=== PATIENT | female | born 1975 | race Caucasian/White ===

== ENCOUNTER 2022-10-21 12:23 | Day surgery (SDC) | payer BC, SELFPAY ==
--- NOTE | 2022-10-10 15:13 | PCM.HP.BLA ---
History and Physical Date of Admission: 10/21/22 HPI: The patient is a 47 year old female presenting for pre-operative visit. She is scheduled for hysteroscopy D&C, possible fibroid or polyp resection, exam under anesthesia and endometrial ablation, for menorrhagia, endocervical polyp and possible submucosal fibroid on 10/21/22. Procedure discussed along with risks, benefits and complications. Other alternatives discussed for management. Consent form signed? Yes. ? ? PAST MEDICAL HISTORY PAST MEDICAL HISTORY Diagnosis Date ? Anxiety state ? ? OCD (obsessive compulsive disorder) ? ? ? PAST SURGICAL HISTORY PAST SURGICAL HISTORY Procedure Laterality Date ? DELIVERY ONLY ? 02/2004 ? LIGATE FALLOPIAN TUBE ? 02/2004 ? during csection ? ? ? CURRENT MEDICATIONS Current Outpatient Medications Medication Sig Dispense Refill ? FLUoxetine (PROZAC) 10 mg capsule Take 10 mg by mouth twice daily. ? ? ? Ferrous Gluconate 225 mg (27 mg iron) tab iron gluconate Quantity: 0 Refills: 0 Ordered: 06-Aug-2021 Marbella Chapman Generic Substitution Allowed ? ? ? No current facility-administered medications for this visit. ? ? ALLERGIES: Gentamicin ? PERSONAL HISTORY: SOCIAL HISTORY Social History ? Tobacco Use ? Smoking status: Former ? Smokeless tobacco: Never Vaping Use ? Vaping Use: Never used Substance Use Topics ? Alcohol use: Yes ? ? Comment: rarely ? Drug use: Never ? FAMILY HISTORY: FAMILY HISTORY FAMILY HISTORY Problem Relation Age of Onset ? Hypertension Mother ? ? Lipids Mother ? ? Melanoma Mother ? ? Kidney Disease Father ? ? COPD Father ? ? Asthma Father ? ? Emphysema Father ? ? Hypertension Father ? ? Heart Maternal Grandmother ? ? CAD ? Diabetes Maternal Grandmother ? ? Diabetes Maternal Grandfather ? ? ? REVIEW OF SYMPTOMS: GENERAL: denies fevers or chills ENDOCRINOLOGY: has not been on steroids Cardiology : denies palpitations or chest pain Respiratory: denies SOB or cough Hematology: denies history of prolonged bleeding or easy bruising or VTE Allergy: Denies history of personal or family history of allergy to anesthesia ? PHYSICAL EXAMINATION: ? VITALS: Blood pressure 124/86, pulse 75, resp. rate 16, height 5' 4 (1.626 m), weight 244 lb (110.7 kg), last menstrual period 09/22/2022, SpO2 99 %. ? GENERAL: The patient is well nourished, well hydrated in no acute distress. , The patient is oriented to time, place, and person. NECK: Supple. No lynphadenopathy, normal thyroid, no thyromegaly. LUNGS: Clear to auscultation bilaterally. no wheezes, rhonchi or rales HEART: Regular rate and rhythm, Normal heart sounds, and No murmurs or gallops ? Pelvic ultrasound from 09/02/2022: Uterus: -Size: 4.7 x 6.3 x 13.3 cm -Orientation: Anteverted -Endometrial echo complex:The endometrial echo complex measured 1.3 cm. -Cervix: Cervical nabothian cysts present measuring up to 1.5 cm. -Fibroids: Myomatous. A exhibit display representative uterine body fibroid and measures 1.4 cm in size and appears intramural with a probable submucosal component. Right Ovary: Not visualized. No sonographic evidence of right adnexal mass. Left Ovary: 4.6 x 4.9 x 5.5 cm ?- Contains a 4.9 cm mildly hemorrhagic cyst. ? ? Endometrial biopsy from 2022 cm shows endocervical polyp, definitive endometrial tissue not present. ? IMPRESSION: Menorrhagia, stenotic cervix, submucosal fibroid, endocervical polyp ? PLAN: The risks/benefits/alternatives and personal involved for the planned hysteroscopy D&C with possible fibroid or polyp resection, exam under anesthesia, endometrial ablation were reviewed with the patient. Her questions were answered to her satisfaction and she desires to proceed. Consent was signed. I reviewed with her postop instructions and expectations. ? ? I have reviewed and updated past medical and surgical history, medications and allergies
--- NOTE | 2022-10-21 | EMB_PTH ---
PATIENT: ANGIE KWON [place] [facility] [place][id number] AGE/SX: 47/F ROOM: RE10/21/[address]: Dr. Jerri Vallejo MD : 1975 BED: DIS: 10/21/2022 SPEC #: [id number] RECD: 10/21/22 16:26 STATUS: MATHIEU MERRY #: [id number] ION: 10/21/22 00:[address]: Jerri Vallejo DEPT: SURGICAL PATHOLOGY RECD BY: Wilman Mills Tissues: Endometrium, NOS Procedures: Surgery Specimen Level IV HEADER OPERATION: Hysteroscopy, D & C Lyndsay PRE-OP DIAGNOSIS: Menorrhagia, stenotic cervix, submucosal fibroid, endocervical polyp TISSUE SUBMITTED: Endometrial curettings MICROSCOPIC DIAGNOSIS Endometrial curettings: Early secretory endometrium with focal glandular breakdown. HAYDER:alexis 10/25/2022 MICROSCOPIC DESCRIPTION Slides are reviewed. GROSS DESCRIPTION Received in fixative is one container labeled with the patient's name and designated endometrial curettings. The specimen consists of multiple fragments of hemorrhagic soft tissue that in aggregate measure 3.0 x 2.5 x 0.2 cm. The specimen is totally submitted in two cassettes. / SJ:alexis 10/24/2022 TC:5 CPT: 52014
[2022-10-21] MEDS: Lactated Ringers 1,000 ML 15 ML IV (12:30)
[2022-10-21 12:56] LABS: Internal QC Validated? YES +Cl - CLEAR BKGD; Pregnancy, Urine Negative Negative
[2022-10-21 13:15] LABS: Hematocrit 39.8 % (37-47); Hemoglobin 10.9 g/dL (12.0-15.0); Mean Corp Hgb Conc 27.4 g/dL (32-36); Mean Corpuscular Hgb 18.3 pg (27.0-32.0); Mean Corpuscular Volume 66.7 fL (81-99); Mean Platelet Vol. 9.3 fl (6.2-12.0); POSITIVE MORPHOLOGY YES; Platelet Count 290 K/mm3 (150-450); RBC Distribution Width CV 22.8 % (11.6-14.6); RBC Distribution Width SD 51.8 fl (35.1-43.9); Red Blood Count 5.97 M/mm3 (4.2-5.4); White Blood Count 8.6 K/mm3 (4.4-11.0)
[2022-10-21] MEDS: Ketorolac 30 MG/ML Syringe IV (13:15)
[2022-10-21 13:17] VITALS: BP 144/77; PULSE 84; RESP 18; TEMP 35.8; O2SAT 100; BMI 41.3
[2022-10-21 13:32] LABS: Scan Indicated on CBC? Y/N YES- FLAGS NOTED
[2022-10-21] MEDS: Lidocaine 1% /Epi 1:100 (20ml) 20 ML Vial (13:45)
--- NOTE | 2022-10-21 14:01 | OP.PCM_ITS ---
Problems Associated Problem List Diagnoses (1) Menorrhagia: Report of Operation Date of Procedure: 10/21/22 Pre-Operative Diagnosis: menorrhagia Post-Operative Diagnosis: same Surgery/Procedure Performed:: Hysteroscopy D&C with Lyndsay endometrial ablation Description of Surgical Findings:: normal cervix and vagina, lush endometrium Surgeon: Jerri Vallejo websphere consultant: Jarvis Johnson MS3 Type of Anesthesia: MAC/Supplemental/Local Anesthesiologist: Zoraida Coles Special Medications: none Specimen's removed: endometrial curettings Drains: none Estimated Blood Loss (mL): 10 Fluids Replaced: 600 Description of Procedure: The patient was taken to the OR where she was prepped and draped in dorsal lithotomy position. The weighted speculum was placed in the vagina and the anterior lip of the cervix was grasped with a single-tooth tenaculum. A paracervical block was administered with [1% lidocaine with 1-100,000 epinephrin e solution]. The cervix was dilated serially with Hegar dilators. The [5mm] hysteroscope was placed into the uterine cavity and the above findings were noted. Bilateral tubal ostia [were] identified. The hysteroscope was removed. A gentle sharp curettage was done of the uterine cavity. The instruments were removed from the vagina. The uterine cavity size was 10 cm, the cervix was 4 cm. The Lyndsay device was set to 6 cm. The Lyndsay device was placed into the endometrial cavity and opened in the cervical balloon seal inflated. The first uterine cavity integrity test was passed and the second uterine integrity test was initiated. This was passed on the first attempt. The device then activated and went through the endometrial ablation cycle without interruption. When the procedure ended the device was removed. The instruments were removed from the vagina. The specimen was handed off and sent to pathology. All sponge and needle counts were correct. Vaginal sweep was performed by me. The patient was awakened and taken to the recovery room in stable condition. Hysteroscopic ins: 200 cc normal saline Hysteroscopic outs: 150 cc No polyps or fibroids were noted in the endometrial cavity. The cavity was normal shape Grafts/Implants Used: none Procedure Start Time: 13:39 Procedure Stop Time: 13:55 Complications none Admit VTE Documentation VTE Present on Admission: No VTE Mechan Device Prophylaxis: SCD's VTE Pharm Prophylaxis ordered?: No Reason prophylaxis not ordered:: Procedure Not Indicated
[2022-10-21 14:05] VITALS: BP 128/61; BP 144/77; PULSE 85; RESP 16; TEMP 36.7; O2SAT 97
--- NOTE | 2022-10-21 14:09 | PCM.DC ---
Discharge Instructions Diet Discharge Diet: No restrictions Activity May resume sexual activity in: 2 weeks Lifting Restrictions: none Dressing / Incision Call your doctor if your incision/area has: Sudden Increased Bleeding and Foul Smelling Discharge Call your doctor if you observe: Fever of 101 or Higher and Using more than 1 pad per hour (for 2 hrs in a row) Follow Up Care Please Follow Up With: Jerri Vallejo MD When: Our office will contact you with your pathology results next week. Send a Sensiot[employer] message or call the office at [phone] with any concerns Test Results: Test results from this visit will be discussed in further detail at your follow-up appointment, if applicable. Discharge Plan Admission Primary Reason for Your Visit: Hysteroscopy D&C with endometrial ablation Attending Provider: Jerri Vallejo Primary Care Provider: LIZET OLMEDO Discharge Orders/Prescriptions Prescriptions: New ibuprofen [ibuprofen] 600 mg tablet 600 mg PO Q6H PRN (Reason: Pain) 20 Days Qty: 30 1RF hydrocodone-acetaminophen 5-300 mg tablet 1 tab PO BID PRN (Reason: pain) 3 Days Qty: 5 0RF Continued fluoxetine 10 mg capsule 20 mg PO DAILY Patient Comments: TAKE 1 CAPSULE BY MOUTH TWICE DAILY ferrous sulfate [iron] 325 mg (65 mg iron) tablet 325 mg PO DAILY Disposition Disposition (needs filled in before D/C Order can be placed): Home, Self Care
[2022-10-21 14:10] VITALS: BP 142/79; BP 144/77; PULSE 78; RESP 16; O2SAT 100
[2022-10-21 14:15] VITALS: BP 124/68; BP 144/77; PULSE 77; RESP 16; O2SAT 100
[2022-10-21 14:20] VITALS: BP 128/84; BP 144/77; PULSE 74; RESP 16; TEMP 36.4; O2SAT 100
[2022-10-21 14:50] VITALS: BP 144/77
== END 2022-10-21 15:03 | disposition home or self-care (01) ==
LOC: SDC 12:25 → AC 12:27
PROVIDERS: Anesthesiology; Referring Provider Obstetrics & Gynecology; Visit Provider Obstetrics & Gynecology
PROC: 0U5B8ZZ Destruction of Endometrium, Via Natural or Artificial Opening Endoscopic (ICD-10-PCS; CPT 58558; principal; 2022-10-21 14:45)
DX: N92.0 Excessive and frequent menstruation with regular cycle (principal); F41.1 Generalized anxiety disorder; F42.9 Obsessive-compulsive disorder, unspecified; E61.1 Iron deficiency; Z87.891 Personal history of nicotine dependence
CPT/HCPCS: 58563; 00952; 81025; 85027; 88305; J7120; J2405

== ENCOUNTER 2023-07-07 06:21 | Day surgery (SDC) | payer BC, SELFPAY ==
[2023-07-07 06:55] VITALS: BP 144/97; PULSE 87; RESP 17; TEMP 36.6; O2SAT 98; BMI 41.8
[2023-07-07 06:55] LABS: Internal QC Validated? YES +Cl - CLEAR BKGD; Pregnancy, Urine Negative Negative
[2023-07-07] MEDS: Lactated Ringers 1,000 ML 15 ML IV (06:55)
--- NOTE | 2023-07-07 07:10 | HP.PCM_ITS ---
HPI - General General Date of Service: 07/07/23 HPI Narrative ANGIE KWON, is a 48 F who presents for colonoscopy for + cologuard. no changes since office visit. office visit 05/18/23 HPI HPI: 48-year-old female presents for diagnostic colonoscopy due to positive Cologuard. Patient never had previous colonoscopy. Patient denies any family history of colon cancer. Patient has bowel movements typically daily if she eats her raisin bran cereal. Patient denies any chronic abdominal pain/nausea/vomiting/reflux. [facility] Medical History Cardiology follow-up encounter History of echocardiogram Wears glasses Anxiety Low iron Restless legs Migraine headache Shortness of breath on exertion Leg cramps Former smoker History of irregular heartbeat Home Medications ?Medication ?Instructions ?Recorded ?Last Taken ?Type fluoxetine 10 mg capsule 20 mg PO DAILY 10/04/22 07/06/23 History ibuprofen 600 mg tablet 600 mg PO Q6H PRN Pain 20 days #30 10/21/22 Unknown Rx TABLETS Allergy/AdvReac Type Severity Reaction Status Date / Time gentamicin Allergy Severe Swelling Verified 07/07/23 06:32 Surgical History History of hysteroscopy History of Social History (Updated 05/18/23 @ 14:05 by Denae Damon) Smoking Status: Former smoker alcohol intake: never substance use type: does not use Past Medical/Surgical History Planned Operation Planned Operative Procedure/s: COLONOSCOPY Previous Hospitalizations/Surgeries HX Hospitalizations: No Any Problems With Anesthesia: No You/Your Family Experience Fever (Hyperthermia) With Anes: No Cholinesterase deficiency: No Cardiovascular Hx Hypertension: No Respiratory Hx Sleep Apnea: No Hx Respiratory Tract Infection/Cold (presently): No Do You Snore Loudly (louder than talking or can be heard): No Do You Often Feel Tired/ Fatigued/ Sleepy Dring Daytime?: No Has Anyone Observed You Stop Breathing During Sleep?: No Result (for STOP score): Negative Smoking Status: Former smoker Neurological Does patient have nerve stimulator: No Reproduction : No Miscellaneous Recent Exposure to Contagious Disease: No Allergies gentamicin Allergy (Severe, Verified 07/07/23 06:32) Swelling EYE SWELLING Discharge Is Pt Admitted From a Penitentiary, or a Alf: No After D/C, Where Do you Plan to Go: Return Home Vital Signs Vital Signs Vital Signs: 07/07/23 06:55 07/07/23 06:55 Temperature 97.8 F Temperature Source Temporal Pulse Rate 87 Respiratory Rate 17 Respiratory Pattern Normal Blood Pressure 144/97 H Blood Pressure Mean 112 Blood Pressure Source Monitor Blood Pressure Position Semi-Fowlers Blood Pressure Location Left Forearm Pulse Ox 98 Oxygen Delivery Method Room Air Weight Weight: 244 lb 0.827 oz Body Mass Index (BMI) 41.8 Physical Exam Const alert, oriented x3 and no apparent distress HEENT normocephalic and head/scalp atraumatic Resp normal respiratory effort Cardio regular rate GI soft to palpation and non-tender; Negative for non-distended Palpation: Negative for guarding Extremity no clubbing, cyanosis or edema Skin no rashes or lesions noted Neuro CN's II-XII intact bilaterally Psych mental status grossly normal Assessment & Plan Assessment/Plan (1) Positive colorectal cancer screening using Cologuard test: Surgery Risks - Colonoscopy I discussed with the patient the risks of the procedure: Yes Risks Include but are not Limited To: Risks include but are not limited to: Bleeding, perforation requiring further surgery, inability to complete colonoscopy requiring barium enema.
--- NOTE | 2023-07-07 07:30 | COLBX_PTH ---
PATIENT: ANGIE KWON LOC: [facility] U#:[id number] AGE/SX: 48/F ROOM: RE07/07/[address]: Dr. Kita Sorenson MD : 1975 BED: DIS: 07/07/2023 SPEC #: [id number] RECD: 07/07/23 10:43 STATUS: MATHIEU GREGYuri #: [id number] ION: 07/07/23 07:[address]: Kita Sorenson DEPT: SURGICAL PATHOLOGY RECD BY: Lucero Desai ENTERED: 07/07/23 12:09 SP TYPE: COLON BX OTHR DR: Dr. Sudhakar Espinoza MD Tissues: Rectum, NOS Procedures: Surgery Specimen Level IV HEADER OPERATION: Colonoscopy with biopsies PRE-OP DIAGNOSIS: Positive colorectal cancer screening using Cologuard test TISSUE SUBMITTED: Polyp at rectum biopsy MICROSCOPIC DIAGNOSIS Rectal polyp, biopsy: Fragments of colonic mucosa with focal hyperplastic change. AM/mr 07/11/2023 MICROSCOPIC DESCRIPTION Slides are reviewed. GROSS DESCRIPTION Received in fixative is one container labeled with the patient's name and designated polyp at rectum. The specimen consists of two irregular fragments of light rush soft tissue that in aggregate measure 0.6 x 0.3 x 0.1 cm. The specimen is totally submitted in one cassette. AM/mr 07/07/23 TC:5 CPT:17907
[2023-07-07 07:55] VITALS: BP 107/48; PULSE 63; RESP 16; TEMP 36.2; O2SAT 98
--- NOTE | 2023-07-07 07:59 | OP.COLON_ITS ---
Patient Name: Comfort Noland Procedure Date: 07/07/2023 7:18 AM Date of : 1975 Age: 48 Procedure: Colonoscopy Indications: Positive Cologuard test Providers: Kita Sorenson MD Referring MD: Sudhakar Espinoza Md Medicines: Monitored Anesthesia Care Patient Profile: This is a 48 year old female. Last Colonoscopy: none. The patient's first colonoscopy is today. Complications: No immediate complications. Procedure: Pre-Anesthesia Assessment: - Prior to the procedure, a History and Physical was performed, and patient medications and allergies were reviewed. The patient's tolerance of previous anesthesia was also reviewed. The risks and benefits of the procedure and the sedation options and risks were discussed with the patient. All questions were answered, and informed consent was obtained. Prior Anticoagulants: The patient has taken no anticoagulant or antiplatelet agents. ASA Grade Assessment: Per anesthesia. After reviewing the risks and benefits, the patient was deemed in satisfactory condition to undergo the procedure. After I obtained informed consent, the scope was passed under direct vision. Throughout the procedure, the patient's blood pressure, pulse, and oxygen saturations were monitored continuously. The Colonoscope was introduced through the anus and advanced to the cecum, identified by the appendiceal orifice, ileocecal valve and palpation. The colonoscopy was performed without difficulty. The patient tolerated the procedure well. The quality of the bowel preparation was good. Scope In: 7:29:06 AM Scope Withdrawal Time 0 hours 14 minutes 32 seconds Scope Out: 7:48:28 AM Total Procedure Duration Time 0 hours 19 minutes 22 seconds Findings: The perianal and digital rectal examinations were normal. Two sessile polyps were found in the rectum. The polyps were less than 5 mm in size. These polyps were removed with a cold biopsy forceps. Resection and retrieval were complete. The exam was otherwise without abnormality on direct and retroflexion views. Impression: - Two less than 5 mm polyps in the rectum, removed with a cold biopsy forceps. Resected and retrieved. - The examination was otherwise normal on direct and retroflexion views. Recommendation: - Discharge patient to home. - Resume previous diet. - Continue present medications. - Await pathology results. - Repeat colonoscopy in 5 years for surveillance based on pathology results. Procedure Code(s): --- Professional --- 89322, PT, Colonoscopy, flexible; with biopsy, single or multiple Diagnosis Code(s): --- Professional --- D12.8, Benign neoplasm of rectum R19.5, Other fecal abnormalities CPT copyright 2021 [employer]. All rights reserved. The codes documented in this report are preliminary and upon medical records auditor review may be revised to meet current compliance requirements. MD Kita Murillo MD 07/07/2023 7:58:46 AM This report has been signed electronically. Number of Addenda: 0 Note Initiated On: 07/07/2023 7:18 AM
--- NOTE | 2023-07-07 07:59 | OP.CCLET_ITS ---
07/07/2023 Sudhakar Espinoza Md Re : Colonoscopy procedure for Comfort Noland Dear Dr. Espinoza This procedure was performed on Friday, July 07, 2023. My impressions and recommendations are as follows: Impressions : - Two less than 5 mm polyps in the rectum, removed with a cold biopsy forceps. Resected and retrieved. - The examination was otherwise normal on direct and retroflexion views. Recommendations : - Discharge patient to home. - Resume previous diet. - Continue present medications. - Await pathology results. - Repeat colonoscopy in 5 years for surveillance based on pathology results. My findings are described in the full procedure note, which is enclosed. If I can be of further assistance, please feel free to contact me at Doctor phone number(s): , Work: . Sincerely, MD Kita Murillo MD 07/07/2023 7:58:46 AM This report has been signed electronically.
[2023-07-07 08:00] VITALS: BP 115/64; PULSE 62; RESP 16; O2SAT 98
[2023-07-07 08:04] VITALS: BP 133/74; PULSE 60; RESP 16; TEMP 36.9; O2SAT 100
== END 2023-07-07 08:34 | disposition home or self-care (01) ==
LOC: EN 06:22 → AC 06:23
PROVIDERS: Anesthesiology; PCP Family Medicine; Referring Provider Family Medicine; Visit Provider Surgery
PROC: 0DJD8ZZ Inspection of Lower Intestinal Tract, Via Natural or Artificial Opening Endoscopic (ICD-10-PCS; CPT 45378; principal; 2023-07-07 07:25)
DX: R19.5 Other fecal abnormalities (principal); K62.1 Rectal polyp; Z87.891 Personal history of nicotine dependence; Z90.49 Acquired absence of other specified parts of digestive tract
CPT/HCPCS: 45380; 81025; 88305; J7120; J2405

== ENCOUNTER 2023-08-25 10:10 | Day surgery (SDC) | payer BC, SELFPAY ==
--- NOTE | 2023-08-23 09:18 | HP.PCM_ITS ---
History and Physical Date of Admission: 08/25/23 HPI: The patient is a 48 year old female presenting for pre-operative visit. She is scheduled for LAVH with bilateral salpingectomy and cystoscopy, for failed endometrial ablation, AUB and adenomyosis on 08/25/23. Procedure discussed along with risks, benefits and complications. Other alternatives discussed for management. Consent form signed? Yes. PAST SURGICAL HISTORY PAST SURGICAL HISTORY Procedure Laterality Date ? DELIVERY ONLY 02/2004 ? HYSTEROSCOPY ENDOMETRIAL ABLATION 10/21/2022 Hysteroscopy D&C with Lyndsay endometrial ablation ? LIGATE FALLOPIAN TUBE 02/2004 during csection CURRENT MEDICATIONS Current Outpatient Medications Medication Sig Dispense Refill ? Norethindrone Acet-Ethinyl Est (LOESTRIN 03/04, ,) 1-20 mg-mcg per tablet Take 1 tablet by mouth once daily. 21 tablet 3 ? FLUoxetine (PROZAC) 10 mg capsule Take 10 mg by mouth two times a day. ? Ferrous Gluconate 225 mg (27 mg iron) tab iron gluconate Quantity: 0 Refills: 0 Ordered: 06-Aug-2021 Marbella Chapman Generic Substitution Allowed (Patient not taking: Reported on 01/16/2023) No current facility-administered medications for this visit. ALLERGIES: Gentamicin PERSONAL HISTORY: SOCIAL HISTORY Social History Tobacco Use ? Smoking status: Former ? Smokeless tobacco: Never Vaping Use ? Vaping Use: Never used Substance Use Topics ? Alcohol use: Yes Comment: rarely ? Drug use: Never FAMILY HISTORY: FAMILY HISTORY FAMILY HISTORY Problem Relation Age of Onset ? Hypertension Mother ? Lipids Mother ? Melanoma Mother ? Kidney Disease Father ? COPD Father ? Asthma Father ? Emphysema Father ? Hypertension Father ? Heart Maternal Grandmother CAD ? Diabetes Maternal Grandmother ? Diabetes Maternal Grandfather REVIEW OF SYMPTOMS: GENERAL: denies fevers or chills ENDOCRINOLOGY: has not been on steroids Cardiology : denies palpitations or chest pain Respiratory: denies SOB or cough Hematology: denies history of prolonged bleeding or easy bruising or VTE Allergy: Denies history of personal or family history of allergy to anesthesia PHYSICAL EXAMINATION: VITALS: Blood pressure 138/82, pulse 80, resp. rate 16, height 162.6 cm (5' 4), weight 112.4 kg (247 lb 12.8 oz), last menstrual period 09/22/2022. GENERAL: The patient is well nourished, well hydrated in no acute distress. , The patient is oriented to time, place, and person. NECK: Supple. No lynphadenopathy, normal thyroid, no thyromegaly. LUNGS: Clear to auscultation bilaterally. no wheezes, rhonchi or rales HEART: Regular rate and rhythm, Normal heart sounds, and No murmurs or gallops D&C done in past year, benign endometrium PAP and HPV02/2022 neg w/ neg hrHpv Pelvic US 07/13/23: Indication Abnormal uterine bleeding Impression Normal appearing anteverted uterus that measures 108 mm x 54 mm x 61 mm. The central endometrium complex measures 4.9 mm in combined thickness. No abnormal blood flow to suggest a polyp or focal endometrial pathology is observed within the endometrial complex. The contour of the endometrial cavity was normal on 3-D imaging. Both ovaries are visualized and appear normal. No adnexal masses were observed. There is no free fluid visualized in the peritoneal cavity. Recommendations Follow up as clinically indicated. 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 Endometrial thickness, total 4.9 mm Right Ovary Rt ovary: Visualized Rt ovary D1 19 mm Rt ovary D2 18 mm Rt ovary D3 19 mm Rt ovary Vol 3.4 cm? Left Ovary Lt ovary: Visualized Lt ovary D1 20 mm Lt ovary D2 19 mm Lt ovary D3 22 mm Lt ovary Vol 4.3 cm? Cul de Sac Visualized. no free fluid visualized IMPRESSION: AUB, adenomyosis, failed endometrial ablation PLAN: The risks/benefits/alternatives and personal involved for the planned LAVH with bilateral salpingectomy and cystoscopy were reviewed with the patient. Her questions were answered to her satisfaction and she desires to proceed. Consent was signed. I reviewed with her postop instructions and expectations. Preop CBC and magnesium ordered I have reviewed and updated past medical and surgical history, medications and allergies Assessment & Plan Assessment/Plan (1) Adenomyosis: (2) Abnormal uterine bleeding (AUB):
[2023-08-23 10:30] LABS: Hemoglobin 13.9 g/dL (12.0-15.0); Mean Corp Hgb Conc 31.6 g/dL (32-36); Mean Corpuscular Hgb 23.7 pg (27.0-32.0); Mean Platelet Vol. 9.8 fl (6.2-12.0); Platelet Count 265 K/mm3 (150-450); RBC Distribution Width SD 40.5 fl (35.1-43.9); Red Blood Count 5.87 M/mm3 (4.2-5.4); White Blood Count 5.8 K/mm3 (4.4-11.0)
[2023-08-23 11:25] LABS: Magnesium 2.4 mg/dL (1.6-2.6)
[2023-08-23 13:47] LABS: Magnesium 2.4 mg/dL (1.6-2.6)
[2023-08-25] VITALS (10 sets, daily range): BP systolic 123–167; BP diastolic 68–95; PULSE 56–84; RESP 14–18; TEMP 36.7–37.2; O2SAT 96–99; BMI 42.0
[2023-08-25 10:33] LABS: Internal QC Validated? YES +Cl - CLEAR BKGD; Pregnancy, Urine Negative Negative
[2023-08-25] MEDS: Lactated Ringers 1,000 ML 40 ML IV (10:36)
--- NOTE | 2023-08-25 10:36 | PCM.PRE.AN2 ---
ASA Classification* ASA Classification ASA Classification: 3 Assessment & Plan Anesthesia* Anesthesia Assessment Anesthesia Assessment: Discussed sedation and/or anesthesia options, risks, benefits, and alternatives with patient/parents/legal guardian/POA. Questions invited. The patient/parents/legal guardian/POA seems to understand and agrees to proceed with anesthesia plan. Reviewed the physical assessment, medical history, allergy history and patient home medications list prior to surgery/procedure/anesthetic and documented any changes. Performed airway and anesthesia risk assessments. Anesthesia Type Anesthesia Type: General (see written pre anesthesia record for full assessment) Anesthesia Focused Assessment* Temperature: 99 F Pulse Rate: 84 Blood Pressure: 167/95 Respiratory Rate: 17 Pulse Ox: 99 Airway Assessment Mouth opens: >3 cm Mallampati Score: I Focused Labs Anesthesia Preop lab: CBC WBC 5.8 K/mm3 (4.4-11.0) 08/23/23 09:33 RBC 5.87 M/mm3 (4.2-5.4) H 08/23/23 09:33 Hgb 13.9 g/dL (12.0-15.0) 08/23/23 09:33 Hct 44.0 % (37-47) 08/23/23 09:33 Plt Count 265 K/mm3 (150-450) 08/23/23 09:33 CHEMISTRY Magnesium 2.4 mg/dL (1.6-2.6) 08/23/23 09:32 COAG Urine Test Negative Negative 08/25/23 10:15 Pre-Assessment Diagnosis/Proposed Procedure Planned Operative Procedure(s): ERAS Hysterectomy,[facility] Anesthesia History 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 When Was Last Pacemaker Check QUESTION #4 FULL TEXT: You/Your Family Experience fever (hyperthermia) with Anesthesia Last Oral Intake Last Oral intake: Last Oral Intake NPO since 19:00 08/25/23 10:27 Meds taken in AM with sips of Yes 08/25/23 10:27 water? 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 accountant bookkeeper: PONV - junior accountant bookkeeper Female Yes 08/21/23 14:56 HX of Motion Sickness No 08/21/23 14:56 HX of N/V After Surgery No 08/21/23 14:56 Non-Smoker Yes 08/21/23 14:56 Duration of Surgery greater Yes 08/21/23 14:56 than 60 minutes Number of Risk Factors 3 08/21/23 14:56 PONV Score Moderate Risk 08/21/23 14:56 Height & Weight Height & Weight: Anesthesia: Height & Weight Height 5 ft 4 in 08/25/23 10:27 Weight: 111 kg 08/25/23 10:27 Body Mass Index (BMI) 42.0 08/25/23 10:27 Respiratory Assessment Respiratory Assessment - junior accountant bookkeeper: Respiratory Tract Infection Hx - junior accountant bookkeeper Hx Respiratory Tract Infection No 08/21/23 14:56 STOP Sleep Apnea STOP Sleep Apnea - junior accountant bookkeeper: STOP Sleep Apnea - junior accountant bookkeeper Hx Hypertension No 08/21/23 14:56 Hx Sleep Apnea No 08/21/23 14:56 CPAP BIPAP Do you snore loudly (louder No 08/21/23 14:56 than talking or can be heard Do you often feel tired/ No 08/21/23 14:56 fatigued/ sleepy during daytime? Has anyone observed you stop No 08/21/23 14:56 breathing during sleep? STOP Results Negative 08/21/23 14:56 QUESTION #5 FULL TEXT : Do you snore loudly (louder than talking or can be heard through closed doors)? 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 Specify any problems Hx of Preganancy in last 3 No 08/21/23 14:56 Months Nurse Filling Out Transfusion [facility] 08/21/23 14:56 & Questions: Date: 08/21/23 08/21/23 14:56 Time: 14:59 08/21/23 14:56 Patient unable to answer at this time (ie. 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: /Reproductive Hx- junior accountant bookkeeper Hx Now No 08/21/23 14:56 Gestational Age (in weeks): EDC: Hx Hx Para Hx Section SAB No 08/21/23 14:56 Active Medications Active Medications: Current Medications Generic Name Dose Route Start Last Admin Trade Name Freq PRN Reason Stop Dose Admin Acetaminophen 1,000 mg 08/25/23 12:10 Acetaminophen 500 Mg Tablet PO 08/25/23 12:11 PREOP ONE Celecoxib 400 mg 08/25/23 12:10 Celecoxib 200 Mg Capsule PO 08/25/23 12:11 X1 ONE Dexamethasone Sodium Phosphate 8 mg 08/25/23 12:10 Dexamethasone 4 Mg/Ml Vial IV 08/25/23 12:11 X1 ONE Enoxaparin Sodium 40 mg 08/25/23 12:10 Enoxaparin 40 Mg/0.4 Ml Syringe SC 08/25/23 12:11 X1 ONE Gabapentin 600 mg 08/25/23 12:10 Gabapentin 600 Mg Tablet PO 08/25/23 12:11 PREOP ONE Lactated Ringer's 1,000 mls @ 40 mls/hr 08/25/23 12:10 IV .Q25H KADE Cefazolin Sodium 2 gm/ Sodium 110 mls @ 150 mls/hr 08/25/23 12:10 Chloride IV 08/25/23 12:53 PREOP ONE Lactated Ringer's 1,000 mls @ 70 mls/hr 08/25/23 12:10 IV .[id number] KADE Magnesium Sulfate 1 gm/ 102 mls @ 408 mls/hr 08/25/23 12:10 Dextrose IV 08/25/23 12:24 X1 ONE Insulin Human Lispro 0 unit 08/25/23 12:10 Insulin Lispro 100 Unit/Ml Insuln.Pen SC Q4H PRN PRN BG >/= 180, SEE PROTOCOL Protocol Ondansetron HCl 4 mg 08/25/23 12:10 Ondansetron 4 Mg/2 Ml Vial IV 08/25/23 12:11 X1 ONE Phenazopyridine HCl 190 mg 08/25/23 12:10 Phenazopyridine 95 Mg Tablet PO 08/25/23 12:11 X1 ONE Scopolamine HBr 1 patch 08/25/23 12:10 Scopolamine 1mg/72hr Patch TD 08/25/23 12:11 X1 ONE PFSH Medical History Cardiology follow-up encounter History of echocardiogram Wears glasses Anxiety Low iron Restless legs Migraine headache Shortness of breath on exertion Leg cramps Former smoker History of irregular heartbeat Home Medications ?Medication ?Instructions ?Recorded ?Last Taken ?Type fluoxetine 10 mg capsule 20 mg PO DAILY 10/04/22 07/06/23 History ibuprofen 600 mg tablet 600 mg PO Q6H PRN Pain 20 days #30 10/21/22 Unknown Rx TABLETS norethindrone acetate 1 mg-ethinyl 1 tab PO DAILY 08/21/23 Unknown History estradiol 20 mcg tablet (Richard) Allergy/AdvReac Type Severity Reaction Status Date / Time gentamicin Allergy Severe Swelling Verified 07/07/23 06:32 Surgical History History of endometrial ablation History of colonoscopy History of hysteroscopy History of Social History Smoking Status: Former smoker alcohol intake: never substance use type: does not use Review of Systems (Anesthesia) ROS Narrative System reviewed and no additional complaints, except as documented.
[2023-08-25] MEDS: Scopolamine 1mg/72hr Patch 1 PATCH TD (10:37)
[2023-08-25] MEDS: Enoxaparin 40 MG/0.4 ML Syringe SC (10:37)
[2023-08-25] MEDS: Phenazopyridine 95 MG Tablet 190 MG PO (10:38)
[2023-08-25] MEDS: Acetaminophen 500 MG Tablet 1000 MG PO ×2 (10:38→16:35)
[2023-08-25] MEDS: Magnesium 1 GM over 15 mins IV (10:39)
[2023-08-25] MEDS: Celecoxib 200 MG Capsule 400 MG PO (10:39)
[2023-08-25] MEDS: Gabapentin 600 MG Tablet PO (10:59)
[2023-08-25] MEDS: dexAMETHasone 4 MG/ML Vial 8 MG IV (12:10)
[2023-08-25] MEDS: Cefazolin 2 GM in 0.9% Normal Saline (100mL Bag) 100 ML IV (12:10)
--- NOTE | 2023-08-25 12:10 | HYST_PTH ---
PATIENT: ANGIE KWON LOC: [facility] [place] U#:[id number] AGE/SX: 48/F ROOM: RE08/25/[address]: Dr. Jerri Vallejo MD : [id number] BED: DIS: 08/25/2023 SPEC #: [id number] RECD: 08/25/23 18:20 STATUS: MATHIEU REYuri #: [id number] ION: 08/25/23 12:[address]: Jerri Vallejo DEPT: SURGICAL PATHOLOGY RECD BY: Oc Mendoza ENTERED: 08/28/23 08:39 SP TYPE: HYSTERECT OTHR DR: MD Dr. Graham Castro MD Tissues: Uterus, NOS Procedures: Surgery Specimen Level V HEADER OPERATION: Hysterectomy, LAVH, bilateral salpingectomy PRE-OP DIAGNOSIS: Adenomyosis, abnormal uterine bleeding TISSUE SUBMITTED: Uterus, cervix, bilateral fallopian tubes MICROSCOPIC DIAGNOSIS Uterus, cervix, bilateral fallopian tubes, hysterectomy, bilateral salpingectomy: Cervix - no pathologic diagnosis. Endometrium - Proliferative endometrium. See comment. Myometrium - Adenomyosis. Intramural and submucosal leiomyomas (Largest measuring 2.0cm in greatest dimension) One fallopian tube- Focal hematosalpinx Second fallopian tube- Focal hematosalpinx and endometriosis. HAYDER/ 08/29/2023 COMMENT Endometrium also shows autolytic changes. MICROSCOPIC DESCRIPTION Slides are reviewed. GROSS DESCRIPTION Received in fixative is one container labeled with the patient's name and designated uterus, cervix, bilateral fallopian tubes. The specimen consists of a hysterectomy specimen consisting of uterus with cervix and detached bilateral fallopian tubes. The uterus with cervix weighs 169 gm and measures 11.0 x 8.0 x 7.0 cm. The serosal surface is rush glistening. The ectocervical mucosa is unremarkable. The external os is oval in contour. The endocervical canal measures 3.5 cm in length and the endocervical mucosa is rush glistening and unremarkable. The triangular endometrial cavity measures 5.5 cm in length and 2.0 cm in width. A submucosal nodule is noted. The endometrium is rush, glistening and measures 0.1 cm in thickness. Sections of the uterine wall reveal multiple intramural and one submucosal nodular mass. The largest mass measures 2.0cm in greatest dimension. Sections of these masses reveal rush whorled cut surfaces without areas of hemorrhage, necrosis or cystic degeneration. Uterine wall measures up to 3.0cm in thickness. Fallopian tubes are not identified as right or left. One fallopian tube measures 5.0cm in length and 0.5cm in diameter. Second fallopian tube measures 5.0cm in length and 0.6 to 1.0 cm in diameter. Both fallopian tubes are interrupted in the middle consistent with previous tubal ligation. Fimbrial end is identified. Section of the one fallopian tube reveal in the proximal portion of lumen is filled with the hemorrhagic material. Sections of the second fallopian tube also reveal in the proximal portion lumen filled with hemorrhagic material and focal fibrous area. Supervisor Case Loading sections are submitted in nine cassettes as follows: 1 - anterior cervix, 2 - posterior cervix, 3 & 4 - anterior uterine wall, 5 & 6 - posterior uterine wall and nodular masses, 7- more section of nodular masses, 8- one fallopian tube, 9- second fallopian tube. SJ: 08/28/2023 TC:5 CPT: 71169
--- NOTE | 2023-08-25 12:26 | DCINST_ITS ---
Discharge Instructions Diet Discharge Diet: Light diet - advance as tolerated Activity Discharge Activity: [address] Drive (IN 7-10 days) May shower in (days): 1 May resume sexual activity in: 6-8 weeks and - (Nothing in your vagina for 6 weeks. No vaginal or anal intercourse for 6-8 weeks) Dressing / Incision Cleanse incision/area with: Soap & Water and - (Your incisions have skin glue, it can get wet, leave the glue on until it falls off. ) Follow Up Care Please Follow Up With: Jerri Vallejo MD When: With my office in 1-2 and 6 weeks or as needed. [phone]. Send a startuply message with non urgent questions Test Results: Test results from this visit will be discussed in further detail at your follow- up appointment, if applicable. Discharge Plan Admission Attending Provider: Jerri Vallejo Primary Care Provider: Sudhakar Espinoza Consulting Providers: Graham Davis Instructions Print Language: Scottish Discharge Orders/Prescriptions Prescriptions: New oxycodone 5 mg tablet 5 mg PO Q8H PRN PRN (Reason: severe pain) 7 Days Qty: 12 0RF Continued fluoxetine 10 mg capsule 20 mg PO DAILY Patient Comments: TAKE 1 CAPSULE BY MOUTH TWICE DAILY ibuprofen 600 mg tablet 600 mg PO Q6H PRN (Reason: Pain) 20 Days Qty: 30 1RF No Action norethindrone ac-eth estradiol [Richard 03/04 ()] 1-20 mg-mcg tablet 1 tab PO DAILY Referrals / Follow Up: Sudhakar Espinoza MD [Primary Care Provider] - Disposition Disposition (needs filled in before D/C Order can be placed): Home, Self Care
[2023-08-25 13:24] LABS: Bedside Glucose 96 mg/dL (74-106)
[2023-08-25] MEDS: Bupivacaine Mpf 0.5% 30 ML VIAL (14:39)
--- NOTE | 2023-08-25 14:51 | PCM.OPRPT ---
Problems Associated Problem List Diagnoses (1) Abnormal uterine bleeding (AUB): (2) Adenomyosis: Report of Operation Date of Procedure: 08/25/23 Pre-Operative Diagnosis: adenomyosis, AUB, failed endometrial ablation Post-Operative Diagnosis: same Surgery/Procedure Performed:: Total laparoscopic hysterectomy with bilateral salpingectomy and cystoscopy Description of Surgical Findings:: boggy uterus, normal cervix and vagina, normal ovaries Surgeon: Jerri Vallejo market news reporter: Latrice Boyd market news reporter: Tashi Yancey Type of Anesthesia: General Anesthesiologist: Johana Ordoñez Special Medications: none Specimen's removed: uterus, cervix, bilateral fallopian tubes Drains: none Estimated Blood Loss (mL): 150 Fluids Replaced: 1400 Description of Procedure: The patient was taken to the operating room where she was prepped and draped in the dorsal lithotomy position. Her arms were tucked to the side and padded and her legs were placed in the yellowfin stirrups. Care was taken to ensure that she was placed in a neurologically safe and neutral position. A weighted speculum was placed in the vagina and the anterior lip of the cervix was grasped with a single-tooth tenaculum. The cervix sounded to centimeters. 2-0 Vicryl sutures were secured to the cervix at 3 and 9:00. The 3 cm uterine lube attendant was placed into the cervix and the balloon inflated. The stay sutures were placed through the cup and secured down to the cervix. Once the uterine lube attendant was secured to the cervix the La catheter was placed to straight drain. Attention was turned to the abdominal portion of the case. Before skin incisions were made they were infiltrated with 0.5% Marcaine solution for local anesthetic. A 5 mm intraumbilical incision was made and while tenting the anterior abdominal wall up with towel clamps a 5 mm blade less trocar and sleeve were advanced directly into the peritoneal cavity using the Visiport. Peritoneal placement was confirmed with the laparoscope the pneumoperitoneum was created, and the underlying abdominal contents were intact. The patient was placed in Trendelenburg and the above findings were noted. Right and left lateral 5 mm trochars were placed under direct visualization without difficulty. The rapid insufflator was initiated and used. The antimesenteric portion of the tube was clamped sealed and transected serially on both sides with the LigaSure device. The round ligaments were clamped sealed and transected and a window was made in the peritoneum. The utero-ovarian ligaments were then clamped sealed and transected with the LigaSure device and the pedicles were hemostatic The bladder flap was dissected down with the LigaSure device and blunt dissection and the uterine arteries were then skeletonized. The uterine arteries were clamped sealed and transected on both sides with the LigaSure device. Then along the cardinal ligament uterine arteries adjacent to the cervix were clamped sealed and transected with the LigaSure device to move them away from the vaginal cuff angle. At this point the pedicles were all examined and found to be hemostatic. Was well assisted with tissue manipulation and visualization as well as camera guidance during this portion of the case then she scrubbed out and the ADVISORY INTERNSHIP took over as print shop assistant. The bladder flap was rechecked and found to be adequately down. The monopolar tip of the LigaSure device was then used to enter the anterior vagina. The vaginal manipulator cup was noted in the vaginal colpotomy incision was made circumferentially around the cup. When the 3 and 9:00 positions of the cervicovaginal junction were reached these were clamped sealed and transected with the LigaSure device to secure any small remaining vessels. There were 2 small vessels bleeding along the vaginal cuff that were sealed with the LigaSure device. At this point the pedicles were hemostatic from above and attention was turned to the vaginal portion of the case again. The uterus was brought intact out through the vaginal colpotomy incision along with the tubes There is some bleeding from the left vaginal cuff angle and this was grasped with an Allis clamp. Vaginal angle sutures were placed on both sides with 0 Vicryl sutures and care was taken to ensure that the uterosacral ligament was secured into this stitch. The remainder the vagina was then closed horizontally with interrupted 0 Vicryl [id number] sutures. The cuff was hemostatic vaginally. The La catheter was removed and a cystoscopy was performed. The bladder appeared normal and was intact. Both ureteral orifices were noted and both ureteral jets were seen. The cystoscope was removed and the La catheter was placed back to straight drain. A sponge stick was placed in the vagina to help place traction against the vaginal cuff and the pneumoperitoneum was re-created. The suction pilot boat captain was used to remove any blood and clots from the peritoneal cavity. The pedicles were reexamined and found to be hemostatic. The vaginal cuff was hemostatic. Some hemoblast was placed over the cuff and the pedicles and no active bleeding was noted through the hemoblast. The right and left lateral ports were taken out and the sites were hemostatic. The pneumoperitoneum was released and even under low pressure there was no bleeding of any of the pedicles are vaginal cuff. The umbilical port was removed. The umbilical skin incisions were closed with Monocryl suture and skin glue by the ADVISORY INTERNSHIP. The vaginal instruments were removed by me and a vaginal sweep was completed by me. The surgery was performed by me with assistance other than the portions dictated as above. There were no qualified residents available for this procedure. All sponge lap and needle counts were correct and the patient was transferred to the recovery room in stable condition. Grafts/Implants Used: none Procedure Start Time: 12:35 Procedure Stop Time: 14:45 Complications none Admit VTE Documentation VTE Present on Admission: No VTE Mechan Device Prophylaxis: SCD's VTE Pharm Prophylaxis ordered?: Yes
[2023-08-25] MEDS: Lactated Ringers @ 70 MLS/HR 70 ML IV (14:56)
--- NOTE | 2023-08-25 14:57 | PCM.POST.ANE ---
Anesthesia: Postop Eval I Current Vital Signs Temperature: 98.1 F Pulse Rate: 66 Blood Pressure: 134/77 Respiratory Rate: 18 Pulse Ox: 96 Oxygen Delivery Method: Nasal Cannula Oxygen Flow Rate (L/min): 4 Assessment Airway patent: Yes Spontaneous unlabored respirations: Yes Mental status: Awake and Calm nausea: No Vomiting: No Anesthesia Complication: No Fluid Hydration Crystalloid volume administer (ml): 1,400 Total IV fluid infused: 1,400 Progress Note Anesthesia document: Postop Eval 1 completed: Yes
--- NOTE | 2023-08-25 15:15 | EKG12_ITS ---
Test Reason : CP POST OP Blood Pressure : / mmHG Vent. Rate : 061 BPM Atrial Rate : 061 BPM P-R Int : 132 ms QRS Dur : 092 ms QT Int : 428 ms P-R-T Axes : 034 002 033 degrees QTc Int : 430 ms Normal sinus rhythm Normal ECG No previous ECGs available Confirmed by KAREN FARR, CHRISTI ([id number]), editorial intern [facility] ([id number]) on 08/31/2023 10:42:24 A M Referred By: Jerri Vallejo Confirmed By:KASSIDY JONES MD
--- NOTE | 2023-08-25 15:33 | POSTOPAN2_ITS ---
Anesthesia Postop Eval I Sum Postop Eval Completion status Anesthesia document: Postop Eval 1 completed: Yes Anesthesia Postop Eval I Summary Anesthesia Postop Eval I Summary: Anesthesia Postop Eval I: Assessment Summary Airway patent Yes 08/25/23 14:58 COMMUNITY ARTS CENTRE [email or web address] Spontaneous unlabored Yes 08/25/23 14:58 COMMUNITY ARTS CENTRE MANAGER.[email or web address] respirations Mental status Awake,Calm 08/25/23 14:58 COMMUNITY ARTS CENTRE MANAGER.[email or web address] nausea No 08/25/23 14:58 COMMUNITY ARTS CENTRE MANAGER.[email or web address] Vomiting No 08/25/23 14:58 COMMUNITY ARTS CENTRE MANAGER.SCHR Anesthesia Postop Eval I: Fluid Summary Crystalloid volume administer 1,400 08/25/23 14:58 COMMUNITY ARTS CENTRE MANAGER.SCHR (ml) Colloids volume administered ( ml) Blood Product volume administered (ml) Total IV fluid infused 1,400 08/25/23 14:58 COMMUNITY ARTS CENTRE MANAGER.SCHR Anesthesia Postop Eval I: Summary Notes Anesthesia Complication No 08/25/23 14:58 COMMUNITY ARTS CENTRE MANAGER.SCHR Anesthesia Complication Comment: Post-operative progress note Anesthesia: Postop Eval II Evaluation Mental status: Asleep (Arousable.) Pain Level: 4 nausea: No Vomiting: No Progress Note Post-operative progress note: Patient complaining of chest pain in PACU. Twelve-lead EKG performed. Normal sinus rhythm. Suspect this could be related to laparoscopic procedure and air insufflation Complications Anesthesia Complication: No
--- NOTE | 2023-08-25 15:33 | PCM.POSTANE2 ---
Anesthesia Postop Eval I Sum Postop Eval Completion status Anesthesia document: Postop Eval 1 completed: Yes Anesthesia Postop Eval I Summary Anesthesia Postop Eval I Summary: Anesthesia Postop Eval I: Assessment Summary Airway patent Yes 08/25/23 14:58 FAMILY [email or web address] Spontaneous unlabored Yes 08/25/23 14:58 FAMILY MEDIATOR.[email or web address] respirations Mental status Awake,Calm 08/25/23 14:58 FAMILY [email or web address].[email or web address] nausea No 08/25/23 14:58 FAMILY MEDIATOR.SCHR Vomiting No 08/25/23 14:58 FAMILY MEDIATOR.[email or web address] Anesthesia Postop Eval I: Fluid Summary Crystalloid volume administer 1,400 08/25/23 14:58 FAMILY MEDIATOR.SCHR (ml) Colloids volume administered ( ml) Blood Product volume administered (ml) Total IV fluid infused 1,400 08/25/23 14:58 FAMILY MEDIATOR.SCHR Anesthesia Postop Eval I: Summary Notes Anesthesia Complication No 08/25/23 14:58 FAMILY MEDIATOR.SCHR Anesthesia Complication Comment: Post-operative progress note Anesthesia: Postop Eval II Evaluation Mental status: Asleep (Arousable.) Pain Level: 4 nausea: No Vomiting: No Progress Note Post-operative progress note: Patient complaining of chest pain in PACU. Twelve-lead EKG performed. Normal sinus rhythm. Suspect this could be related to laparoscopic procedure and air insufflation Complications Anesthesia Complication: No
== END 2023-08-25 17:54 | disposition home or self-care (01) ==
LOC: SDC 10:10 → AC 10:11
PROVIDERS: Anesthesiology; PCP Family Medicine; Referring Provider Obstetrics & Gynecology; Visit Provider Obstetrics & Gynecology
PROC: 0UT9FZZ Resection of Uterus, Via Natural or Artificial Opening With Percutaneous Endoscopic Assistance (ICD-10-PCS; CPT 58571; principal; 2023-08-25 11:45)
DX: N93.9 Abnormal uterine and vaginal bleeding, unspecified (principal); N80.03 Adenomyosis of the uterus; F41.9 Anxiety disorder, unspecified; D25.0 Submucous leiomyoma of uterus; D25.1 Intramural leiomyoma of uterus; Z79.899 Other long term (current) drug therapy; Z87.891 Personal history of nicotine dependence
CPT/HCPCS: 58571; 00840; 36415; 81025; 82962; 83735; 85027; 86850; 86900; 86901; 88307; 93005; J7120; J2405; J3475